=== PATIENT | female | born 1975 | race Asian ===

== ENCOUNTER 2016-10-19 16:39 | Observation (INO) | payer OTHER ==
[2016-10-19] MEDS ORDERED: MILK OF MAGNESIA PO PRN (16:42)
[2016-10-19] MEDS ORDERED: DULCOLAX PR PRN (16:42)
[2016-10-19] MEDS ORDERED: TYLENOL PO PRN (16:42)
[2016-10-19] MEDS ORDERED: ZOFRAN IV PRN (16:42)
[2016-10-19] MEDS ORDERED: MOTRIN PO PRN (16:42)
[2016-10-19] MEDS ORDERED: PREMARIN IV SCH (18:00)
[2016-10-19 20:32] LABS: Basophils % (Auto) 0.5 % (0.0-1.8); Eosinophils % (Auto) 1.2 % (0.0-4.3); Hematocrit 21.8 % (30.3-42.9); Hemoglobin 7.1 gm/dl (10.1-14.3); Mean Corpuscular HGB Conc 33 % (30-34); Mean Corpuscular Hemoglobin 31 pg (28-32); Mean Corpuscular Volume 95 fl (79-97); Platelet Count 326 K/mm3 (140-440); Red Blood Count 2.29 M/mm3 (3.65-5.03); Red Cell Distribution Width 14.6 % (13.2-15.2); White Blood Count 6.4 K/mm3 (4.5-11.0)
[2016-10-19 20:49] LABS: Anion Gap 17 mmol/L; BUN/Creatinine Ratio 14.44; Blood Urea Nitrogen 13 mg/dL (7-17); Calcium 8.8 mg/dL (8.4-10.2); Carbon Dioxide 24 mmol/L (22-30); Chloride 101.9 mmol/L (98-107); Glucose 91 mg/dL (65-100); Potassium 4.1 mmol/L (3.6-5.0); Sodium 139 mmol/L (137-145)
[2016-10-19] MEDS: WATER FOR INJ (PF) IV SCH (21:15)
[2016-10-19] MEDS: PREMARIN IV SCH (21:38)
[2016-10-19] MEDS ORDERED: NACL 0.9% 500 ML 500 ML IV ONE (22:06)
[2016-10-19] MEDS ORDERED: BENADRYL IV ONE (22:08)
--- NOTE | 2016-10-19 22:17 | History and Physical Report ---
History of Present Illness Date of examination: 10/19/16 Date of admission: 10/19/16 17:20 Chief complaint: vaginal bleeding, dizziness, fatigue History of present illness: Pt with h/o dub presented to office for SIS and Embx and was found to have c/o of fatigue, dizziness, and feeling weak. Pt last hgb in the office was 9.5 on . Pt admitted for iv premarain therapy and transfusion if needed. Visit Type: Procedure CC: no complaints. History of Present Illness: Patient presents for SIS/EMB...she has no complaints...Esther Pace Pt presents with menorrhagia not responsive to provera po. When seen in office last she c/o having heavy menses but periods that were coming every 4 months. Today she has been bleeding since last visit. She started the proveral and had 4 days of no bleeding but hen the bleeding returned. He hgb at the time was 9.5 but today she c/o having dizziness, and headaches and fatigue. Embx and SIS were done w/o difficulty. There were no masses in the cavity but the uterus does have appearace that could suggest adenomyosis. The SIS was limited somewhat because of clots in the cavity that would not clear for the SIS to be completed. Pt advised of need for admission, obs and possilbe transfusion for the bleeding. I d/w treatment options and she desires to have Vital Signs: Patient Profile: 41 Years Old Female LMP: 09/16/2016 Height: 61 inches (154.94 cm) Weight: 171 pounds BMI: 32.31 BSA: 1.77 Pt. in pain? 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 of genital herpes: no Partner hx. of genital herpes: no Hx of STD: None Active Medications (reviewed today): FERROUS SULFATE 325 (65 FE) MG TABS (FERROUS SULFATE) 1 po qd IBUPROFEN 800 MG TABS (IBUPROFEN) 1 po q6 hr prn pain LOSARTAN POTASSIUM 25 MG ORAL TABS (LOSARTAN POTASSIUM) Current Allergies (reviewed today): No known allergies Past Medical History: Reviewed history from 10/01/2016 and no changes required: menorrhagia Depression hypertension Past Surgical History: Reviewed history from 10/01/2016 and no changes required: positive Tubal Ligation Novasure ablation 2008 Family History Summary: Reviewed history and no changes required: 10/19/2016 Social History: Reviewed history from 11/14/2012 and no changes required: occ etoh/ no tobacco/ no drugs Risk Factors: PAP Smear History: Date of Last PAP Smear: 10/01/2016 Review of Systems General Denies fever, chills, sweats, anorexia, fatigue, weakness, malaise, weight loss and sleep disorder. Denies nausea, vomiting, headache, swelling of legs, abdominal pain, vaginal discharge, vaginal bleeding and contractions. Complains of menorrhagia and abnormal vaginal bleeding. Denies vaginal discharge, incontinence, dysuria, hematuria, urinary frequency, amenorrhea, pelvic pain, genital sores, decreased libido, painful periods, painful sex, urinary urgency, hot flashes, vaginal dryness, vaginal itching and vaginal odor. CV Denies chest pains, palpitations, syncope, dyspnea on exertion, orthopnea, PND and peripheral edema. Resp Denies cough, dyspnea at rest, excessive sputum, hemoptysis, wheezing and pleurisy. GI Denies nausea, vomiting, diarrhea, constipation, change in bowel habits, abdominal pain, melena, hematochezia, jaundice, gas/bloating, indigestion/ heartburn, dysphagia and odynophagia. Endo Denies cold intolerance, heat intolerance, polydipsia, polyphagia, polyuria and unusual weight change. Breast Denies left breast lump, right breast lump, nipple discharge, bloody discharge from nipple, breast pain, abnormal mammogram and breast enlargement. MS Denies back pain, joint pain, joint swelling, muscle cramps, muscle weakness, stiffness, arthritis, sciatica, restless legs, leg pain at night and leg pain with exertion. Derm Denies rash, itching, dryness and suspicious lesions. Neuro Denies paralysis, paresthesias, headache, seizures, tremors, vertigo, transient blindness, frequent falls, frequent headaches and difficulty walking. Psych Denies depression, anxiety, irritability and mood swings. Eyes Denies blurring, diplopia, irritation, discharge, vision loss, eye pain and photophobia. ENT Denies earache, ear discharge, tinnitus, decreased hearing, nasal congestion, nosebleeds, sore throat and hoarseness. Allergy Denies urticaria, allergic rash, hay fever and recurrent infections. Heme Denies abnormal bruising, bleeding and enlarged lymph nodes. Past History Past Medical History: hypertension Past Surgical History: other (uteine ablation(novasure), BTL) Social history: no significant social history, - Obstetrical History : 6 Number of Living Children: 6 Medications and Allergies Allergies Allergy/AdvReac Type Severity Reaction Status Date / Time No Known Allergies Allergy Verified 10/19/16 17:12 Active Meds: Active Medications Acetaminophen (Tylenol) 650 mg PO Q4H PRN PRN Reason: Pain MILD(1-3)/Fever >100.5/MEIER Bisacodyl (Dulcolax) 10 mg OK QDAY PRN PRN Reason: Constipation unrelieved by MOM Diphenhydramine HCl (Benadryl) 25 mg IV ONCE ONE Stop: 10/19/16 22:09 Estrogens Conjugated (Premarin) 25 mg IV Q6H NICO Stop: 10/20/16 03:01 Last Admin: 10/19/16 21:38 Dose: 25 mg Sodium Chloride (Nacl 0.9% 500 Ml) 500 mls @ 0 mls/hr IV ONCE ONE PRN Reason: As Directed Stop: 10/19/16 22:07 Ibuprofen (Motrin) 600 mg PO Q6H PRN PRN Reason: Pain, Mild (1-3) Magnesium Hydroxide (Milk Of Magnesia) 30 ml PO Q4H PRN PRN Reason: Constipation Ondansetron HCl (Zofran) 4 mg IV Q8H PRN PRN Reason: N/V unrelieved by Reglan Sterile Water (Water For Inj (Pf)) 10 ml IV NOW NICO - Vital Signs Vital signs: Vital Signs Temp Pulse Resp BP 98.6 F 66 22 118/77 10/19/16 19:30 10/19/16 19:30 10/19/16 19:30 10/19/16 19:30 Temp Pulse Resp BP Pulse Ox 98.6 F 66 22 118/77 10/19/16 19:30 10/19/16 19:30 10/19/16 19:30 10/19/16 19:30 - Physical Exam Cardiovascular: Normal S1 Lungs: Positive: Clear to auscultation, Normal air movement Abdomen: Positive: normal appearance, soft. Negative: distention, tenderness, guarding Genitourinary (Female): Positive: normal external genitalia, normal perenium Vulva: both: normal Vagina: Positive: other (moderate blood in the vault) Cervix: Positive: other (+bleeding decreased after EMBx done) Uterus: Positive: normal size Adnexa: both: normal Anus/Rectum: Positive: normal perianal skin Extremities: Positive: normal. Negative: tenderness, edema Deep Tendon Reflex Grade: Normal +2 Results Result Diagrams: 10/19/16 20:00 10/19/16 20:00 Abnormal lab results 10/19/16 Range/Units 20:00 RBC 2.29 L (3.65-5.03) M/mm3 Hgb 7.1 L (10.1-14.3) gm/dl Hct 21.8 L (30.3-42.9) % All other labs normal. Assessment and Plan - Patient Problems (1) Menorrhagia with irregular cycle Current Visit: Yes Status: Acute Plan to address problem: -admit -iv premarin -s/p Nicole(2009)-which pt states never caused a in bleeding -wants hyst but not covered by insurance so desires to try Mirena which is already being arranged in office -d/c home on provera unitl the Mirena is placed pending response to the premarin (2) Anemia Current Visit: Yes Status: Acute Qualifiers: Anemia type: A Iron deficiency anemia type: chronic blood loss Vitamin B12 deficiency anemia type: V Folate deficiency anemia type: F Bone marrow failure anemia type: B Hemolytic anemia type: H Other causes of anemia: O Qualified Code(s): D50.0 - Iron deficiency anemia secondary to blood loss ( chronic) Plan to address problem: -xfuse 2 units of blood at this time -repeat h/h after completion of two units -plan for d/c home tomorrow if h/h stable and bleeding and sx improved -plan of care d/w pt and all questions were addressed and answered.
[2016-10-20] MEDS ORDERED: NACL 0.9% 500 ML 500 ML IV ONE (01:30)
[2016-10-20] MEDS: WATER FOR INJ (PF) IV SCH (02:39)
[2016-10-20] MEDS: PREMARIN IV SCH (02:39)
--- NOTE | 2016-10-20 06:56 | Event Note ---
Date: 10/20/16 Spoke with RN. Pt has not had any bleeding since the iv premarin. She is currently getting second unit of blood. Plan at this time would be to d/c home today with f/u in the office if h/h improved, pt sx improved, and bleeding better. Will repeat h/h 2hrs after second unit completed. Pt already has rx for provera sent to her pharmacy which she will con't unitl Mirena placement in the office as she has chosen this a her treatment options that is more economical at this time with her insurance coverage. Plan of care d/w nursing staff and had been d/w pt prior to admission. Will sign pt out to oncoming provider this am.
--- NOTE | 2016-10-20 08:01 | Progress Note ---
Subjective - Subjective Date of service: 10/20/16 Principal diagnosis: ERROR Patient reports: loss of fluid, movement normal, contractions Objective - Vital Signs Vital Signs: Vital Signs - 12hr 10/20/16 10/20/16 10/20/16 00:00 03:00 03:30 Temperature 98.6 F 98.7 F 98.3 F Pulse Rate 81 78 Pulse Rate [ 75 Left] Respiratory 22 18 18 Rate Blood Pressure 103/58 106/73 Blood Pressure 102/61 [Left Arm] 10/20/16 10/20/16 10/20/16 03:45 04:00 04:15 Temperature 98.5 F 98.6 F 98.1 F Pulse Rate 70 65 Pulse Rate [ 72 Left] Respiratory 18 22 18 Rate Blood Pressure 110/64 111/65 Blood Pressure 117/62 [Left Arm] 10/20/16 10/20/16 10/20/16 04:35 04:45 04:59 Temperature 98.6 F 98.3 F 98.3 F Pulse Rate 80 72 Pulse Rate [ 72 Left] Respiratory 22 18 18 Rate Blood Pressure 109/74 102/69 Blood Pressure 110/65 [Left Arm] 10/20/16 10/20/16 10/20/16 05:15 05:34 05:50 Temperature 98.1 F 98.2 F 98.3 F Pulse Rate 82 80 79 Pulse Rate [ Left] Respiratory 18 18 18 Rate Blood Pressure 102/68 106/64 116/83 Blood Pressure [Left Arm] 10/20/16 10/20/16 06:20 07:05 Temperature 98.3 F 98.2 F Pulse Rate 80 79 Pulse Rate [ Left] Respiratory 18 18 Rate Blood Pressure 106/74 112/76 Blood Pressure [Left Arm] - Exam Breasts: deferred - Labs Labs: Abnormal Labs 10/19/16 10/19/16 20:00 23:35 RBC 2.29 L Hgb 7.1 L Hct 21.8 L Crossmatch See Detail Laboratory Results - last 24 hr 10/19/16 10/19/16 10/19/16 20:00 20:00 23:35 WBC 6.4 RBC 2.29 L Hgb 7.1 L Hct 21.8 L MCV 95 MCH 31 MCHC 33 RDW 14.6 Plt Count 326 Lymph % (Auto) 31.9 Angelina % (Auto) 5.7 Eos % (Auto) 1.2 Baso % (Auto) 0.5 Lymph # 2.0 Angelina # 0.4 Eos # 0.1 Baso # 0.0 Seg Neutrophils % 60.7 Seg Neutrophils # 3.9 Sodium 139 Potassium 4.1 Chloride 101.9 Carbon Dioxide 24 Anion Gap 17 BUN 13 Creatinine 0.9 Estimated GFR > 60 BUN/Creatinine Ratio 14.44 Glucose 91 Calcium 8.8 Blood Type O POSITIVE Antibody Screen Negative Crossmatch See Detail
[2016-10-20 09:06] LABS: Hemoglobin 9.5 gm/dl (10.1-14.3)
[2016-10-20] MEDS ORDERED: COZAAR PO SCH (10:00)
[2016-10-20 10:51] VITALS: BP 123/79
--- NOTE | 2016-10-20 10:56 | Discharge Summary ---
Providers - Providers Date of Admission: 10/19/16 17:20 Date of discharge: 10/20/16 Attending physician: JENNIFER FORRESTER Primary care physician: JENNIFER FORRESTER Hospitalization Condition: Good Disposition: DISCHARGED TO HOME OR SELFCARE Core Measure Documentation - Palliative Care Palliative Care/ Comfort Measures: Not Applicable - Core Measures Any of the following diagnoses?: none Exam - Constitutional Vitals: Temp Pulse Resp BP Pulse Ox 98.2 F 70 14 123/79 10/20/16 07:46 10/20/16 10:35 10/20/16 07:46 10/20/16 10:35 Plan Activity: advance as tolerated Weight Bearing Status: Weight Bear as Tolerated Diet: regular Follow up with: JENNIFER FORRESTER MD [Primary Care Provider] - 10/26/16 10:15 am ([place])
== END 2016-10-20 12:20 | disposition home or self-care (01) ==
LOC: UNDOADMOB 16:39 → 3A 16:39 → OB 17:20
PROVIDERS: ADMIT Obstetrics & Gynecology; ATTEND Obstetrics & Gynecology
DX: N92.0 Excessive and frequent menstruation with regular cycle (principal); D50.0 Iron deficiency anemia secondary to blood loss (chronic); I10 Essential (primary) hypertension; Z98.51 Tubal ligation status
CPT/HCPCS: 36415; 36430; 80048; 85014; 85018; 85025; 86850; 86900; 86901; 86920; 96361; 96374; 96375; 96376; G0378; G0379; J1200; J1410; J7040; P9016

== ENCOUNTER 2018-03-18 06:18 | Observation (INO) | payer BC, OTHER ==
--- NOTE | 2018-03-10 16:16 | History and Physical Report ---
Past History - Obstetrical History : 6 Medications and Allergies Allergies Allergy/AdvReac Type Severity Reaction Status Date / Time No Known Allergies Allergy Verified 10/19/16 17:12 Results All other labs normal.
--- NOTE | 2018-03-14 11:15 | History and Physical Report ---
History of Present Illness Date of examination: 03/14/18 Date of admission: 03/18/18 Chief complaint: heavy bleeding History of present illness: Pt with long h/o menorrhagia. She is s/o endometrial novasure ablation and mirena device to help with the bleeding without any relief. Risk, benefits and alternatives were d/w pt and questions were addressed and answered. Pt desires definitive therapy in the form of LAVH with BS. 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 of genital herpes: no Partner hx. of genital herpes: no Hx of STD: None Active Medications (reviewed today): VITAMIN D () BIOTIN () FERROUS SULFATE 325 (65 Fe) MG ORAL TABLET (FERROUS SULFATE) 1 po qd IBUPROFEN 800 MG ORAL TABLET (IBUPROFEN) 1 po q6 hr prn pain LOSARTAN POTASSIUM 25 MG ORAL TABLET (LOSARTAN POTASSIUM) Current Allergies (reviewed today): No known allergies Past Medical History: Reviewed history from 10/01/2016 and no changes required: menorrhagia Depression hypertension Past Surgical History: Reviewed history from 10/01/2016 and no changes required: positive Tubal Ligation Novasure ablation 2008 Family History Summary: Reviewed history Last on 10/19/2016 and no changes required:03/17/2018 Social History: Reviewed history from 01/31/2018 and no changes required: occ etoh/ no tobacco/ no drugs Patient is Smoking History: Patient has never smoked. 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 History: denies: abnormal PAP smear Family/Genetic History: other (see hpi) Social history: no significant social history, - Obstetrical History : 6 Para: 6 Hx # Term Pregnancies: 6 Number of Living Children: 6 Medications and Allergies Allergies Allergy/AdvReac Type Severity Reaction Status Date / Time No Known Allergies Allergy Verified 10/19/16 17:12 Home Medications Medication Instructions Recorded Confirmed Last Taken Type Losartan [Cozaar] 100 mg PO QDAY 03/14/18 03/14/18 Unknown History - Physical Exam Cardiovascular: Normal S1, Normal S2 Lungs: Positive: Clear to auscultation, Normal air movement Abdomen: Positive: normal appearance, soft, normal bowel sounds. Negative: distention, tenderness, guarding Genitourinary (Female): Positive: normal external genitalia, normal perenium. Negative: perineal/vulvar lesions Vagina: Positive: normal moisture Cervix: Positive: ulceration. Negative: lesion Uterus: Positive: normal size. Negative: tender Adnexa: both: normal Extremities: Positive: normal. Negative: tenderness, edema Deep Tendon Reflex Grade: Normal +2 Results Result Diagrams: 03/14/18 12:30 03/14/18 12:30 All other labs normal. Assessment and Plan - Patient Problems (1) Menorrhagia with irregular cycle Status: Acute Plan to address problem: -To OR for above stated procedure -consents signed and placed on the chart
--- NOTE | 2018-03-14 12:40 | Anesthesia Consultation ---
Anesthesia Consult and Med Hx Date of service: 03/14/18 (for procedure 03/18/18) - Airway Anesthetic Teeth Evaluation: Good, Caps ROM Head & Neck: Adequate Mental/Hyoid Distance: Adequate Mallampati Class: Class II Intubation Access Assessment: Probably Good - Pulmonary Exam CTA: Yes - Cardiac Exam Cardiac Exam: RRR - Pre-Operative Health Status ASA Pre-Surgery Classification: ASA2 Proposed Anesthetic Plan: General Nerve Block: TAP - Pre-Anesthesia Comment Pre-Anesthesia Comments: PMH HTN, abnormal uterine bleeding scheduled for LAVH - Pulmonary Hx Smoking: No Hx Asthma: No COPD: No Hx Pneumonia: No Hx Sleep Apnea: No (JOVANA PRE SCREEN LOW RISK) - Cardiovascular System Hx Hypertension: Yes (X 1 YR; takes losartan) Hx Heart Attack/AMI: No - Central Nervous System Hx Neuromuscular Disorder: No CVA: No Hx Psychiatric Problems: No - Gastrointestinal Hx Gastroesophageal Reflux Disease: No (previous hx of GERD but none in recently ; no meds) - Endocrine Hx End Stage Renal Disease: No Hx Liver Disease: No Hx Insulin Dependent Diabetes: No Hx Non-Insulin Dependent Diabetes: No Hx Thyroid Disease: No - Hematic Hx Anemia: Yes - Other Systems Hx Cancer: No - Additional Comments Anesthesia Medical History Comments: CBC, BMP, bHCG pending. T&S to be drawn DOS.
[2018-03-14 12:52] LABS: Basophils % (Auto) 0.8 % (0.0-1.8); Eosinophils # (Auto) 0.1 K/mm3 (0.0-0.4); Eosinophils % (Auto) 1.8 % (0.0-4.3); Hematocrit 35.1 % (30.3-42.9); Hemoglobin 11.5 gm/dl (10.1-14.3); Lymphocytes # (Auto) 1.4 K/mm3 (1.2-5.4); Lymphocytes % (Auto) 28.4 % (13.4-35.0); Mean Corpuscular HGB Conc 33 % (30-34); Mean Corpuscular Hemoglobin 31 pg (28-32); Mean Corpuscular Volume 95 fl (79-97); Monocytes # (Auto) 0.3 K/mm3 (0.0-0.8); Monocytes % (Auto) 6.2 % (0.0-7.3); Platelet Count 328 K/mm3 (140-440); Red Blood Count 3.71 M/mm3 (3.65-5.03)
[2018-03-14 13:09] LABS: BUN/Creatinine Ratio 10; Blood Urea Nitrogen 7 mg/dL (7-17); Calcium 9.6 mg/dL (8.4-10.2); Hemolysis Index 7
[~2018-03-18 06:18] MED LIST: ANCEF/STERILE WATER 2 GM/20 ML 2 GM/20 ML SYRINGE IV SCH; MARCAINE 0.5% INFILTRATI NR; MARCAINE 0.5% INFILTRATI ONE; NACL 0.9% IR ONE; NACL 0.9% IV ONE; NEURONTIN PO NR; VERSED IV NR; Vasostrict IV ONE; XYLOCAINE 1% 20 mL INFILTRATI NR
[2018-03-18] MEDS ORDERED: NACL BACTERIOSTATIC INFILTRATI ONE (06:33)
[2018-03-18] MEDS ORDERED: MARCAINE 0.5% 30 ML INFILTRATI ONE (06:43)
[2018-03-18] MEDS ORDERED: NACL 0.9% 100 ML ONE (06:43)
[2018-03-18] MEDS ORDERED: METHYLENE BLUE ONE (06:43)
[2018-03-18] MEDS ORDERED: Vasostrict ONE (06:44)
[2018-03-18] MEDS: LACTATED RINGERS 1,000 ML IV SCH (07:05)
[2018-03-18] MEDS ORDERED: VERSED IV PRN (07:18)
[2018-03-18] MEDS ORDERED: XYLOCAINE MPF 2% ONE (07:18)
[2018-03-18] MEDS ORDERED: DILAUDID ONE ×2 (07:18→12:19)
[2018-03-18] MEDS ORDERED: DIPRIVAN 10 MG/ML IV ONE (07:18)
[2018-03-18] MEDS ORDERED: ZEMURON IV ONE (07:18)
[2018-03-18] MEDS ORDERED: ZOFRAN IV PRN ×2 (07:28→11:31)
--- NOTE | 2018-03-18 07:49 | Anesthesia Day of Surgery ---
Anesthesia Day of Surgery - Day of Surgery Patient Examined: Yes Patient H&P Reviewed: Yes Patient is NPO: Yes
[2018-03-18] MEDS ORDERED: NEURONTIN PO NR (08:00)
[2018-03-18] MEDS ORDERED: PEPCID PO NR (08:00)
[2018-03-18] MEDS ORDERED: ANCEF/STERILE WATER 2 GM/20 ML IV NR (08:00)
[2018-03-18] MEDS ORDERED: SUBLIMAZE ONE ×3 (08:48→10:20)
[2018-03-18] MEDS ORDERED: ALBURX 25% (ALBUMIN) IV ONE (11:21)
[2018-03-18] MEDS ORDERED: NORCO 5/325 PO PRN (11:31)
[2018-03-18] MEDS ORDERED: REGLAN IV PRN (11:31)
[2018-03-18] MEDS ORDERED: MORPHINE IV PRN (11:31)
--- NOTE | 2018-03-18 11:31 | Operative Report ---
Operative Report Operative Report: Date of procedure: 03/18/2018 Pre-operative diagnosis: Menorrhagia Post-operative diagnosis: Same plus uterine fibroids and right ovarian mass Procedure name(s): Laparoscopic assisted vaginal hysterectomy Right oophorectomy Surgeon: Farzana Lozano MD Sales And Marketing Representative: Dr. Marilu Giang Anesthesia: Gen. endotracheal anesthesia EBL: 600ml Urine output: 300ml of clear urine out at the end of the procedure Fluids: 2L Findings: Large right ovarian mass encompassing the entire right ovary Grossly normal left ovary Evidence of bilateral tubal ligation Uterus with irregular contour Indications: Patient with a history of menorrhagia that has been treated with both uterine NovaSure ablation and Mirena device. Patient was noted to have continued heavy periods requiring blood transfusions. Decision was made at this time to proceed with definitive therapy via total hysterectomy. Consents were signed and placed on the chart. All risks benefits and alternatives were discussed with the patient. Procedure: Patient was taken to the operating room where she was placed under general endotracheal anesthesia. She was then prepped and draped in sterile fashion. It was at this point that the large [employer] uterine manipulator was placed inside of the uterus after the uterus was sounded to approximately 12 cm. Spencer catheter was also placed at this time. Attention was then turned to the umbilicus in which a supraumbilical incision was made. Under direct visualization the 5 mm trocar was placed inside the peritoneum the peritoneum was then insufflated. As at this point that the laparoscopic portion of the procedure was performed. 1lateral 5 mm port and one suprapubic 5 mm port were also placed under direct visualization. Right oophorectomy was performed by ligating the infundibulopelvic ligament on the right side with the Essure device and transecting. The right ovary was placed in an Endo Catch bag and removed from the abdomen through the 5 mm port that was extended to 10 mm 10 mm lower abdominal port. Using the tripolar instrument the upper pedicles were cauterized and transected to the including round ligament with excellent hemostasis noted bilaterally. Attention was then turned vaginally. A weighted speculum was placed into the vagina and the cervix was grasped with a single-tooth tenaculum 2. The cervix was then injected circumferentially with Pitressin. The cervix was then circumferentially incised with the scalpel and the bladder dissected off of the pubovesical cervical fascia anteriorly with a sponge stick and Metzenbaum scissors. The same procedure was performed posteriorly and the posterior cul-de-sac was entered into sharply without difficulty. At this point a Douglas Clamp was placed over the uterosacral ligaments on either side. These were then transected and suture ligated with 0 Vicryl. Hemostasis was assured. The cardinal ligaments were then clamped on both sides transected and suture ligated in similar fashion. The uterine arteries were then serially clamped with Douglas clamps transected and suture ligated on both sides. Excellent hemostasis was visualized. After it was clear that the uterus had been completely from all pedicles the uterus was removed vaginally intact with cervix intact. The vaginal cuff angles were closed with figure of 8 stitches of 0 Vicryl on both sides. The peritoneum was incorporated in the stitching of the vaginal cuff. A series of interrupted figure of 8 sutures using 0 Vicryl were used to close the entire vaginal cuff. Excellent hemostasis was noted. The vagina was then irrigated copiously. Attention was then turned laparoscopically Again all pedicles were noted to be hemostatic. The ureters were identified bilaterally with peristalsis noted bilaterally. Jeffy Perez introducer was then placed in the 10 mm port to ensure that the fascial edges had been approximated properly. All instruments were then removed from the abdomen and the vagina. All gas was released from the abdomen. The abdominal incisions were closed using 4-0 Monocryl. All of the abdominal incisions were injected with Marcaine without epi. Patient tolerated the procedure well sponge lap and needle counts were all correct 3 the patient was taken to the recovery room awake and in stable condition.
[2018-03-18] MEDS ORDERED: TORADOL ONE (12:07)
[2018-03-18] MEDS: TORADOL IV SCH ×2 (12:14→18:00)
[2018-03-18] MEDS: DILAUDID IV PRN ×2 (12:15→12:40)
[2018-03-18] MEDS: ANCEF/NS 1 GM/50 ML 1 GM/50 ML BAG IV SCH (17:00)
[2018-03-19] MEDS: TORADOL IV SCH ×2 (00:09→05:39)
[2018-03-19] MEDS: ANCEF/NS 1 GM/50 ML 1 GM/50 ML BAG IV SCH (00:10)
[2018-03-19] MEDS: LACTATED RINGERS 1,000 ML IV SCH (00:28)
[2018-03-19 06:39] LABS: Hematocrit 25.9 % (30.3-42.9); Hemoglobin 8.7 gm/dl (10.1-14.3)
[2018-03-19] MEDS ORDERED: COZAAR PO SCH (10:00)
[2018-03-19 10:58] VITALS: BP 127/82
--- NOTE | 2018-03-19 12:18 | Discharge Summary ---
Providers - Providers Date of Admission: 03/18/18 11:31 Date of discharge: 03/19/18 Attending physician: JENNIFER FORRESTER Primary care physician: JENNIFER FORRESTER Hospitalization Reason for admission: other (LAVH WITH BS, WITH RO) Procedure: other (LAVH/BS/RO) Procedure details: SEE OP NOTE Incision: normal, dry, intact Hospital course: Pt admitted and had above stated procedure. Post op course was not complicated. Pt had routine post op care. Pt d/c home on POD #1. Pt has f/u in the office with provider in one week. Condition at discharge: Good Disposition: DC-01 TO HOME OR SELFCARE - Discharge Diagnoses (1) Menorrhagia with irregular cycle Status: Acute Plan - Discharge Medications Prescriptions: Ibuprofen 800 mg PO Q6HR #30 tablet oxyCODONE /ACETAMINOPHEN [Percocet 5/325] 1 tab PO Q4HR #30 tab - Provider Discharge Summary Activity: routine, no sex for 6 weeks, no heavy lifting 4 weeks Diet: routine Instructions: routine Additional instructions: [] Smoking cessation referral if applicable(refer to patient education folder for contact #) [] Refer to [facility] Booklet Call your doctor immediately for: * Fever > 100.5 * Heavy vaginal bleeding ( >1 pad per hour) * Severe persistent headache * Shortness of breath * Reddened, hot, painful area to leg or breast * Drainage or odor from incision. * Keep incision clean and dry at all times and follow doctor's instructions regarding bathing/showering - Follow up plan Follow up: JENNIFER FORRESTER MD [Primary Care Provider] - 7 Days Forms: [facility] Discharge Summary, Discharge Signature Page
--- NOTE | 2018-03-19 12:18 | Progress Note ---
Assessment and Plan - Patient Problems (1) Menorrhagia with irregular cycle Status: Acute Plan to address problem: s/P LAVH. PT DOING WELL. -D/C HOME THIS PM (2) S/P laparoscopic assisted vaginal hysterectomy (LAVH) Status: Acute Plan to address problem: -ROUTINE POST OP CARE -D/C HOME THIS PM Subjective - Subjective Date of service: 03/19/18 Principal diagnosis: POD #1 s/p LAVH with BS Interval history: Pt doing well and tolerating a regular diet. Pt desires d/c home today. Pain is well controlled. Patient reports: appetite normal, voiding normally, pain well controlled, flatus , no dizzy ambulation Objective - Vital Signs Latest vital signs: Vital Signs Temp Pulse Pulse Resp BP BP Pulse Ox 03/19/18 11:00 127/82 03/19/18 10:56 98.6 F 73 18 127/82 03/19/18 09:05 98.6 F 74 18 124/93 03/19/18 04:10 98.4 F 62 18 127/81 03/19/18 00:00 98.8 F 66 18 129/79 03/18/18 22:33 20 03/18/18 21:45 96 H 20 03/18/18 20:05 98 F 85 18 127/82 03/18/18 15:16 98.6 F 61 18 135/85 03/18/18 13:20 98.7 F 59 L 9 L 111/78 100 03/18/18 13:10 98.7 F 59 L 10 L 111/78 100 03/18/18 12:57 59 L 14 129/81 100 03/18/18 12:40 14 03/18/18 12:30 98.6 F 60 14 127/79 100 Intake and Output 03/18/18 03/19/18 03/19/18 22:59 06:59 14:59 Intake Total 1050 240 320 Output Total 1150 1999 850 Balance -100 -2746 -530 Intake: IV 1050 ANCEF/NS 1 GM/50 ML 1 gm 50 In 50 ml @ 100 mls/hr IV Q8H NICO Rx#:[id number] Lactated Ringers 1,000 ml 1000 @ 100 mls/hr IV DIRECT NICO Rx#:[id number] Oral 240 320 Output: Urine 1150 1999 850 Indwelling Catheter 650 2000 Void 850 Other: Total, Intake Amount 240 320 Total, Output Amount 650 800 650 Voiding Method Indwelling Catheter # Voids 500 Void 1 Weight 75.189 kg - Exam Breasts: Present: deferred Cardiovascular: Present: Normal S1, Normal S2 Lungs: Present: Clear to auscultation, Normal air movement Abdomen: Present: normal appearance, soft, normal bowel sounds. Absent: distention, tenderness, guarding Deep Tendon Reflex Grade: Normal +2 Incision: Present: normal, dry, intact - Labs Labs: Abnormal lab results 03/19/18 Range/Units 06:25 Hgb 8.7 L (10.1-14.3) gm/dl Hct 25.9 L (30.3-42.9) %
== END 2018-03-19 13:15 | disposition home or self-care (01) ==
LOC: OR 06:18 → OB 11:31
PROVIDERS: ADMIT Obstetrics & Gynecology; ATTEND Obstetrics & Gynecology
DX: N92.1 Excessive and frequent menstruation with irregular cycle (principal); D25.9 Leiomyoma of uterus, unspecified; N83.9 Noninflammatory disorder of ovary, fallopian tube and broad ligament, unspecified; I10 Essential (primary) hypertension; F32.9 Major depressive disorder, single episode, unspecified; Z72.89 Other problems related to lifestyle
CPT/HCPCS: 36415; 58554; 80048; 84703; 85014; 85018; 85025; 86850; 86900; 86901; 88302; 88305; 88307; 96365; 96366; 96375; 96376; A4217; G0378; J0690; J1170; J1885; J2250; J2704; J3010; J7120; P9047; Q9968